=== PATIENT | female | born 1980 | race Caucasian/White ===

== ENCOUNTER 2018-11-20 12:00 | Emergency (ER) | payer OTHER ==
[2018-11-20] MEDS ORDERED: HYDROmorphONE/DILAUDID 2 MG/ML INJ IVP ONE (12:22)
[2018-11-20] MEDS ORDERED: NS 1,000 ML IV ONE (12:22)
[2018-11-20] MEDS ORDERED: PROMETHAZINE HCL 25 MG/ML INJ IVP ONE (12:22)
[2018-11-20] MEDS ORDERED: KETOROLAC 30 MG/1 ML SDV IVP ONE (12:23)
--- NOTE | 2018-11-20 12:31 | EDPHY ---
H & P Stated Complaint: pelvic pain/ l flank Time Seen by Provider: 11/20/18 12:19 HPI/ROS: HPI: This is a 38-year-old female who presents with Chief Complaint: pelvic pain/ l flank Location: Left lower quadrant and left flank Quality: Pain Duration: 1 hr prior to arrival Signs and Symptoms: no fever, + nausea, no vomiting, no hematemesis, no blood in stool, no abdominal bloating, no diarrhea, no back pain, no urinary symptoms , no vaginal bleeding/discharge, no indigestion, no chest pain, no shortness of breath Timing: Acute Severity: 10 out 10 Context: Patient has a history of endometriosis, status post hysterectomy, presents with sudden onset approximately 1 hr prior to arrival while 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 She reports that the pain is 10 in 10 in her left lower quadrant and left flank. She reports that is nonradiating in nature but associated with nausea. She denies any hematuria or dysuria. No history of kidney stones. She reports that this feels different than her endometriosis pain. Had a bowel movement this morning. Modifying Factors: None Comment: ROS: A comprehensive 10 system review of systems is otherwise negative aside from elements mentioned in the history of present illness. MEDICAL/SURGICAL/SOCIAL HISTORY: Medical history: Generally healthy. Does not take any regular medications. Surgical history: Denies Social history: Family history noncontributory. CONSTITUTIONAL: Moderate distress, nontoxic appearing middle-aged white female, writhing in bed holding left lower abdomen, awake and alert HEENT: Atraumatic and normocephalic, PERRL, EOMI. Nares patent; no rhinorrhea; no nasal mucosal edema. Tympanic membranes clear. Oropharynx clear, no exudate and moist pink mucosa. Airway patent. No lymphadenopathy. No meningismus. Cardiovascular: Normal S1/S2, tachycardia, regular rhythm, without murmur rub or gallop. PULMONARY/CHEST: Symmetrical and nontender. Clear to auscultation bilaterally. Good air movement. No accessory muscle usage. ABDOMEN: Soft, nondistended, moderate left flank and left lower quadrant reproducible tenderness, no rebound, + guarding, no peritoneal signs, no masses or organomegaly. No CVAT. Bowel sounds heard x4 quadrants. EXTREMITIES: 2/2 pulses, strength 5/5, no deformities, no clubbing, no cyanosis or edema. NEUROLOGICAL: no focal neuro deficits. GCS 15. SKIN: Warm and dry, no erythema. no rash. Good capillary refill. Source: Patient Exam Limitations: No limitations - Personal History LMP (Females 10-55): Hysterectomy Current Tetanus Diphtheria and Acellular Pertussis (TDAP): Yes - Medical/Surgical History Hx Asthma: No Hx Chronic Respiratory Disease: No Hx Diabetes: No Hx Cardiac Disease: No Hx Renal Disease: No Hx Cirrhosis: No Hx Alcoholism: No Hx HIV/AIDS: No Hx Splenectomy or Spleen Trauma: No Other PMH: HYSTERECTOMY,BACK SURGERY, - Social History Smoking Status: Never smoked Constitutional: Initial Vital Signs Temperature (C) 36.4 C 11/20/18 12:04 Heart Rate 112 H 11/20/18 12:04 Respiratory Rate 18 11/20/18 12:04 Blood Pressure 135/95 H 11/20/18 12:04 O2 Sat (%) 94 11/20/18 12:04 O2 Delivery Mode Room Air Allergies/Adverse Reactions: No Known Allergies Allergy (Verified 11/20/18 12:02) Home Medications: Medication Instructions Recorded Promethazine HCl 25 mg PO Q6 PRN #10 tablet 11/20/18 Medical Decision Making - Diagnostics Imaging Results: Imaging Impressions Abdomen/Pelvis CT 11/20/18 12:22 Impression: 1. There is no evidence of nephrolithiasis or obstructive uropathy. 2. Mild constipation. 3. Normal appearance of the appendix. 4. Postoperative changes following arthrodesis from L4 to S1. 5. Status post hysterectomy. 6. There is a 1.7 cm hyperdense (hemorrhagic) left ovarian follicle. Findings were discussed with Yeimy Lazar PA-C at 13:21, on 11/20/2018. Attention: This CT examination is specifically designed to evaluate patients who are clinically suspected of having acute obstructive uropathy. This examination does not use radiographic contrast, and as such, provides only a limited evaluation of the abdomen, pelvis, and retroperitoneum. If there is further clinical suspicion for pathological conditions other than obstructive uropathy, a complete CT evaluation of the abdomen and pelvis utilizing intravenous, oral, and rectal contrast should be considered. ED Course/Re-evaluation: Vital signs reviewed and show tachycardia. Placed on quality assurance monitor chassis. IV access, laboratory studies, urinalysis, CT abdomen and pelvis scan without contrast ordered Given 1 L normal saline, IV Dilaudid 1 mg, IV promethazine 12.5 mg, IV Toradol 30 mg 1251: Urinalysis is negative. 1253: reviewed [place] PDMP and no results for the last 1 year 1315: Labs reviewed. No signs of leukocytosis/anemia/platelet dysfunction/JONELLE/ elevated LFTs/electrolyte imbalance. Lipase mildly elevated. 1328: Called by Radiology, Dr. Perez, who advised that CT abdomen and pelvis scan shows constipation and 1.7 cm hemorrhagic left ovarian cyst but no free fluid. No signs of stone or obstructive uropathy. No signs of pancreatitis. Discussed at bedside laboratory results and CT results. Patient feels comfortable being discharged home with Phenergan and OBGYN follow-up. Vital signs improved at discharge. This patient was seen under the supervision of my secondary supervising physician. I evaluated care for this patient with attending. Discussed this patient with Dr. Metz. Differential Diagnosis: Abdominal pain in a female including but not limited to ovarian cyst, pelvic inflammatory disease, ovarian torsion, urinary tract infection, and appendicitis. - Data Points Laboratory Results: Laboratory Results 11/20/18 12:21 11/20/18 12:21 11/20/18 11/20/18 11/20/18 12:21 12:21 12:07 WBC 7.64 10^3/uL 10^3/uL (3.80-9.50) RBC 4.37 10^6/uL 10^6/uL (4.18-5.33) Hgb 13.1 g/dL g/dL (12.6-16.3) Hct 39.9 % % (38.0-47.0) MCV 91.3 fL fL (81.5-99.8) MCH 30.0 pg pg (27.9-34.1) MCHC 32.8 g/dL g/dL (32.4-36.7) RDW 13.0 % % (11.5-15.2) Plt Count 358 10^3/uL 10^3/uL (150-400) MPV 9.4 fL fL (8.7-11.7) Neut % (Auto) 62.6 % % (39.3-74.2) Lymph % (Auto) 30.6 % % (15.0-45.0) [place] % (Auto) 4.8 % % (4.5-13.0) Eos % (Auto) 1.0 % % (0.6-7.6) Baso % (Auto) 0.5 % % (0.3-1.7) Nucleat RBC Rel Count 0.0 % % (0.0-0.2) Absolute Neuts (auto) 4.77 10^3/uL 10^3/uL (1.70-6.50) Absolute Lymphs (auto) 2.34 10^3/uL 10^3/uL (1.00-3.00) Absolute Monos (auto) 0.37 10^3/uL 10^3/uL (0.30-0.80) Absolute Eos (auto) 0.08 10^3/uL 10^3/uL (0.03-0.40) Absolute Basos (auto) 0.04 10^3/uL 10^3/uL (0.02-0.10) Absolute Nucleated RBC 0.00 10^3/uL 10^3/uL (0-0.01) Immature Gran % 0.5 % % (0.0-1.1) Immature Gran # 0.04 10^3/uL 10^3/uL (0.00-0.10) Sodium 139 mEq/L mEq/L (135-145) Potassium 4.0 mEq/L mEq/L (3.5-5.2) Chloride 105 mEq/L mEq/L (97-110) Carbon Dioxide 23 mEq/l mEq/l (22-31) Anion Gap 11 mEq/L mEq/L (6-14) BUN 5 mg/dL L mg/dL (7-23) Creatinine 0.7 mg/dL mg/dL (0.6-1.0) Estimated GFR > 60 Glucose 114 mg/dL H mg/dL (70-100) Calcium 10.1 mg/dL mg/dL (8.5-10.4) Total Bilirubin 0.3 mg/dL mg/dL (0.1-1.4) Conjugated Bilirubin 0.2 mg/dL mg/dL (0.0-0.5) Unconjugated Bilirubin 0.1 mg/dL mg/dL (0.0-1.1) AST 25 IU/L IU/L (14-46) ALT 26 IU/L IU/L (9-52) Alkaline Phosphatase 63 IU/L IU/L (38-126) Total Protein 7.7 g/dL g/dL (6.3-8.2) Albumin 5.0 g/dL g/dL (3.5-5.0) Lipase 386 IU/L H IU/L (23-300) Urine Color YELLOW Urine Appearance CLEAR Urine pH 7.0 (5.0-7.5) Ur Specific [place] 1.010 (1.002-1.030) Urine Protein NEGATIVE (NEGATIVE) Urine Ketones NEGATIVE (NEGATIVE) Urine Blood NEGATIVE (NEGATIVE) Urine Nitrate NEGATIVE (NEGATIVE) Urine Bilirubin NEGATIVE (NEGATIVE) Urine Urobilinogen NEGATIVE EU EU (0.2-1.0) Ur Leukocyte Esterase NEGATIVE (NEGATIVE) Urine Glucose NEGATIVE (NEGATIVE) Medications Given: Discontinued Medications Hydromorphone HCl (Dilaudid) 1 mg IVP EDNOW ONE Stop: 11/20/18 12:23 Last Admin: 11/20/18 12:32 Dose: 1 mg Sodium Chloride (Ns) 1,000 mls @ 0 mls/hr IV EDNOW ONE; Wide Open PRN Reason: Protocol Stop: 11/20/18 12:23 Last Admin: 11/20/18 12:33 Dose: 1,000 mls Ketorolac Tromethamine (Toradol) 30 mg IVP EDNOW ONE Stop: 11/20/18 12:24 Last Admin: 11/20/18 12:33 Dose: 30 mg Promethazine HCl (Phenergan) 12.5 mg IVP EDNOW ONE Stop: 11/20/18 12:23 Last Admin: 11/20/18 12:33 Dose: 12.5 mg Departure - Departure Disposition: Home, Routine, Self-Care Clinical Impression: Constipation by delayed colonic transit, Left ovarian cyst Condition: Good Instructions: Ovarian Cyst (ED), Constipation (ED) Additional Instructions: Consume a minimum of 8-10 glasses of water or electrolyte fluid replacement drinks that include Gatorade, Powerade, Pedialyte. Eat a bland diet for the next 48 hours and then slowly advance as tolerated. Take promethazine 1 tab every 4-6 hours as needed for nausea, vomiting. Take Tylenol 650 mg every 4 hr and/or ibuprofen 600 mg with food every 8 hr as needed for pain. Take [id number] MiraLax daily as needed for constipation. Please establish care with OBGYN to further discuss endometriosis and ovarian cyst. Referrals: Tatiana Lopez MD [Medical Doctor] - As per Instructions Stand Alone Forms: Work Excuse Prescriptions: Promethazine HCl 25 mg PO Q6 PRN #10 tablet PRN Reason: Nausea/Vomiting, Use 1st
[2018-11-20 12:37] LABS: PLATELET COUNT 358 10^3/uL (150-400)
[2018-11-20 13:37] VITALS: BP 108/80
== END 2018-11-20 13:38 | disposition home or self-care (01) ==
DX: K59.00 Constipation, unspecified (principal); N83.202 Unspecified ovarian cyst, left side; E86.9 Volume depletion, unspecified
CPT/HCPCS: 96374; J1170; J1885; J2550